=== PATIENT | female | born 1975 | race African-American/Black ===

== ENCOUNTER 2023-02-12 19:06 | Emergency (ER) | payer OTHER ==
[~2023-02-12] VITALS: Ht 162.6 cm; Wt 67.2 kg
[~2023-02-12 19:06] MED LIST: PREN1CAP13 PO
[2023-02-12 20:17] VITALS: BP 166/92
[2023-02-12] MEDS ORDERED: LEVO25TA7 MT (23:21)
[2023-02-12] MEDS ORDERED: AMOX-494 MT ×2 (23:21)
[2023-02-12] MEDS ORDERED: IBUP-2028 MT (23:30)
[2023-02-12] MEDS ORDERED: AMOXICILLIN 500 MG CAPSULE PO ONE (23:30)
[2023-02-12] MEDS ORDERED: AMOX1TAB16 MT (23:48)
[2023-02-13] MEDS ORDERED: IBUPROFEN 400MG TABLET PO ONE
== END 2023-02-13 00:47 | disposition home or self-care (01) ==
LOC: ER 19:06
DX: K04.7 Periapical abscess without sinus (principal); Z76.0 Encounter for issue of repeat prescription; Z86.39 Personal history of other endocrine, nutritional and metabolic disease
CPT/HCPCS: 99283

== ENCOUNTER 2024-03-30 13:59 | Emergency (ER) | payer MEDICAID, OTHER ==
[~2024-03-30] VITALS: Ht 167.6 cm; Wt 140.0 kg
[~2024-03-30 13:59] MED LIST changes: +AMOX1TAB16 MT; +IBUP-2028 MT; +LEVO25TA7 MT
[2024-03-30 14:37] LABS: BASOPHILS % 0.6 % (0.0-2.0); EOSINOPHILS % 2.8 % (0.0-5.0); HEMATOCRIT. 29.8 % (36.0-48.0); HEMOGLOBIN. 9.7 g/dL (12.0-16.0); LYMPHOCYTES % 19.9 % (20.0-50.0); MEAN CORPUSCULAR HEMOGLOBIN 27.2 pg (28.0-32.0); MEAN CORPUSCULAR HGB CONC 32.7 g/dL (31.0-37.0); MEAN CORPUSCULAR VOLUME 83.4 fL (81.0-99.0); MEAN PLATELET VOLUME 7.2 fl (7.4-10.4); MONOCYTES % 5.8 % (2.0-8.0); NEUTROPHILS % 70.9 % (40.0-76.0); PLATELET 457 x1000/uL (130-400); RED BLOOD CELL COUNT 3.58 mill/uL (4.2-5.4); RED CELL DISTRIBUTION WIDTH 16.5 % (11.6-14.6); WHITE BLOOD COUNT 11.7 x1000/uL (4.5-11.0)
[2024-03-30 14:44] LABS: CHLORIDE 110 mEq/L (98-107); POTASSIUM 3.7 mEq/L (3.5-5.1); SODIUM 142 mEq/L (136-145)
[2024-03-30 14:45] VITALS: O2SAT 100
[2024-03-30 14:45] LABS: CALCIUM 9.6 mg/dL (8.7-10.4); CARBON DIOXIDE 25 mEq/L (21-32)
[2024-03-30 14:50] LABS: CREATININE 0.9 mg/dL (0.6-1.0); GLUCOSE 84 mg/dL (70-105); UREA NITROGEN BLOOD 10 mg/dL (9-23)
[2024-03-30 15:00] LABS: HCG SCREEN NEGATIVE
[2024-03-30 17:18] LABS: CLARITY URINE CLOUDY (CLEAR); COLOR URINE ORANGE (YELLOW); GLUCOSE URINE NEGATIVE (NEGATIVE); KETONES URINE TRACE (NEGATIVE); LEUKOCYTE ESTERASE URINE 1+ (NEGATIVE); NITRITE URINE NEGATIVE (NEGATIVE); OCCULT BLOOD URINE 3+ (NEGATIVE); PROTEIN URINE 2+ (NEGATIVE); SPECIFIC GRAVITY URINE 1.035 (1.005-1.030); UROBILINOGEN URINE 0.2 E.U./dL (0.2-1.0)
[2024-03-30 17:31] LABS: BACTERIA URINE TRACE; RBC URINE 50-100 /hpf (0-2); SQUAMOUS EPITHELIAL CELL URINE 1+ /lpf (RARE/1+)
[2024-03-30 18:17] VITALS: BP 136/67; PULSE 84; RESP 17; O2SAT 100
== END 2024-03-30 18:17 | disposition home or self-care (01) ==
LOC: ER 13:59
DX: N83.202 Unspecified ovarian cyst, left side (principal); D64.9 Anemia, unspecified; Z98.890 Other specified postprocedural states; Z86.39 Personal history of other endocrine, nutritional and metabolic disease
CPT/HCPCS: 36415; 76830; 76856; 80048; 81003; 81025; 84703; 85025; 86850; 86900; 99284